=== PATIENT | male | born 1930 | race Caucasian/White ===

== ENCOUNTER 2018-07-23 11:14 | Emergency (ER) | payer MEDICARE, BC ==
[2018-07-23 11:36] VITALS: RESP 18
[2018-07-23] MEDS ORDERED: LIDOCAINE/EPINEPHR/TETRACAINE 5 ML BOTTLE TOPICAL ONE (11:45)
[2018-07-23] MEDS ORDERED: SILVER NITRATE APPLICATOR 1 EACH STICK..EA. TOPICAL STA (12:03)
--- NOTE | 2018-07-23 12:20 | ED ---
General Adult HPI - General Chief complaint: ENT Stated complaint: nose bleed Time Seen by Provider: 07/23/18 11:38 Source: patient, EMS, RN notes reviewed Mode of arrival: EMS Limitations: no limitations - History of Present Illness Initial comments: Patient 88-year-old male presented to the emergency room today by EMS, the chief complaint of epistaxis. He does admit that he was drinking a cup of coffee approximately at 10 AM he began having bloody nose coming on the right nostril. He does admit that he's had this problem multiple times in the past has seen ENT Dr. Malcolm. Patient does admit that he takes a daily aspirin but no other blood thinners. Patient does admit that he is on oxygen due to history of COPD and partial lobectomy on the left. States that he is not on humidified oxygen. Patient denies any other complaints or symptoms at this time. Patient denies any recent fever, chills, change in shortness of breath, chest pain, back pain, constipation or diarrhea, headaches or visual changes, or any other complaints. - Related Data Home Medications Medication Instructions Recorded Confirmed Aspirin [Terrell Aspirin EC] 81 mg PO DAILY 07/23/18 07/23/18 Atenolol [Tenormin] 50 mg PO DAILY 07/23/18 07/23/18 Cholecalciferol [Vitamin D3] 1,000 unit PO DAILY 07/23/18 07/23/18 Doxazosin [Cardura] 4 mg PO DAILY 07/23/18 07/23/18 Finasteride [Proscar] 5 mg PO DAILY 07/23/18 07/23/18 Garlic 1 tab PO DAILY 07/23/18 07/23/18 Multivitamins, Thera [Multivitamin 1 tab PO DAILY 07/23/18 07/23/18 (formulary)] Omeprazole [PriLOSEC] 20 mg PO DAILY 07/23/18 07/23/18 amLODIPine BESYLATE [Norvasc] 2.5 mg PO DAILY 07/23/18 07/23/18 Allergies Allergy/AdvReac Type Severity Reaction Status Date / Time No Known Allergies Allergy Unverified 07/23/18 11:44 Review of Systems ROS Statement: Those systems with pertinent positive or pertinent negative responses have been documented in the HPI. ROS Other: All systems not noted in ROS Statement are negative. Past Medical History Past Medical History: COPD, Hypertension History of Any Multi-Drug Resistant Organisms: None Reported Past Surgical History: Orthopedic Surgery Additional Past Surgical History / Comment(s): left knee, left lobectomy Smoking Status: Former smoker Past Alcohol Use History: None Reported Past Drug Use History: None Reported General Exam - General Exam Comments Initial Comments: General: The patient is awake and alert, in no distress, and does not appear acutely ill. Eye: Pupils are equal, round and reactive to light, extra-ocular movements are intact. No nystagmus. There is normal conjunctiva bilaterally. No signs of icterus. Ears, nose, mouth and throat: There are moist mucous membranes and no oral lesions. mild bleeding from right nostril. No active bleeding. No posterior pharynx. Neck: The neck is supple Cardiovascular: There is a regular rate and rhythm. No murmur, rub or gallop is appreciated. Respiratory: Lungs are clear to auscultation, respirations are non-labored, breath sounds are equal. No wheezes, stridor, rales, or rhonchi. Musculoskeletal: Normal ROM, no tenderness. Neurological: A&O x 3. CN II-XII intact, There are no obvious motor or sensory deficits. Coordination appears grossly intact. Speech is normal. Skin: Skin is warm and dry and no rashes or lesions are noted. Psychiatric: Cooperative, appropriate mood & affect, normal judgment. Limitations: no limitations Course Vital Signs 07/23/18 11:25 Temperature 97 F L Pulse Rate 66 Respiratory 18 Rate Blood Pressure 134/95 O2 Sat by Pulse 89 L Oximetry Procedures - Procedures Initial comment: Patient's right nostril did have a cottonball with lidocaine, epinephrine, tetracaine on it placed in the right nostril left there for 30 minutes. This was removed and there was a area on the medial aspect of the right nostril that had small bleeding. Silver nitrate stick was used to cauterize. Patient tolerated the procedure well. There is no active bleeding. There is a scab portion also on the left medial aspect of the nose which has no current bleeding. Medical Decision Making - Medical Decision Making Patient is doing well. Patient's currently on oxygen not humidified at home. Discussed with patient that this may help as he has had frequent nosebleeds. Patient doing well at this time no signs of distress. No rebleeding has been observed with no issues. Patient pulse ox was low at triage at 89%. However, patient is on O2 at home. He was given blow-by oxygen and pulse ox was 94% in the room during procedures. Patient will be discharged home is advised to follow-up with ENT as needed. Advised if bleeding recurs to clamp the nose for 20 minutes if bleeding uncontrolled return back here to the emergency room. Disposition Clinical Impression: Epistaxis Disposition: HOME SELF-CARE Condition: Good Instructions: Nosebleed (ED) Additional Instructions: Please discuss about humidified oxygen which may help decrease nosebleeds. If bleeding reoccurs at home please use nasal clamp for 20 minutes. Please uncontrolled return here to the emergency room. Please follow-up with ENT/ family doctor in the next 2 days of symptoms have not improved. Please return to emergency room if the symptoms increase or worsen or for any other concerns. Is patient prescribed a controlled substance at d/c from ED?: No Referrals: Carlos Singh DO [Primary Care Provider] - 1-2 days Time of Disposition: 13:45
[2018-07-23 14:16] VITALS: BP 105/70; PULSE 88; TEMP 97.4
== END 2018-07-23 14:08 | disposition home or self-care (01) ==
LOC: EC 11:14
DX: R04.0 Epistaxis (principal); I10 Essential (primary) hypertension; Z79.82 Long term (current) use of aspirin; Z79.899 Other long term (current) drug therapy; Z87.891 Personal history of nicotine dependence
CPT/HCPCS: 30901; 99284

== ENCOUNTER 2018-10-03 13:22 | Inpatient (IN) | payer MEDICARE, BC ==
--- NOTE | 2018-10-03 13:53 | ED ---
General Adult HPI - General Chief complaint: ENT Stated complaint: Nosebleed Time Seen by Provider: 10/03/18 13:32 Source: patient Mode of arrival: EMS - History of Present Illness Initial comments: Dictation was produced using [employer] dictation software. please excuse any grammatical, word or spelling errors. Chief Complaint: 88-year-old male with past medical history of COPD, hypertension, epistaxis presents with her as of right naris bleeding. History of Present Illness: At 8-year-old male. He is brought in by EMS for right naris bleeding. Patient states his symptoms started today. Denies any blood thinners. He does not report taking aspirin. Patient states that 3 months ago he had a similar episode requiring emergency department evaluation. Patient has no other complaints at this time. EMS had placed packing in the right naris and a nasal clamp with control of bleeding. The ROS documented in this emergency department record has been reviewed and confirmed by me. Those systems with pertinent positive or negative responses have been documented in the HPI. All other systems are other negative and/or noncontributory. PHYSICAL EXAM: General Impression: Alert and oriented x3, not in acute distress HEENT: Normocephalic atraumatic, extra-ocular movements intact, pupils equal and reactive to light bilaterally, mucous membranes moist, blood around the right external naris. No source of bleeding identified at the nasal septum or in the naris she'll is externally. Cardiovascular: Heart regular rate and rhythm, S1&S2 audible, no murmurs, rubs or gallops Chest: Lungs clear to auscultation bilaterally, no rhonchi, no wheeze, no rales Abdomen: Bowel sounds present, abdomen soft, non-tender, non-distended, no organomegaly Musculoskeletal: Pulses present and equal in all extremities, no peripheral edema Motor: no focal deficits noted Neurological: CN II-XII grossly intact, no focal motor or sensory deficits noted Skin: Intact with no visualized rashes Psych: Normal affect and mood ED course: 88-year-old male presents with epistaxis of the right naris. No identifiable source of bleeding on physical examination. End upon arrival shows 91% on 3 L is cannula. Patient denies any home oxygen. Merocel packing was placed in the right naris. Patient tolerated placement well. Return evaluation obtained. In lieu of is 8.4. No old hemoglobin for comparison. Platelets 194. Metabolic panel shows mild acidosis. Rest of CBC is grossly unremarkable. Patient denies any history of atrial fibrillation. Medications reviewed he is not an and any anticoagulation medications at this time. Epistaxis is controlled however given patient's EKG there is concerns for new onset atrial fibrillation. Given that patient is having significant nasal bleeding we will withhold heparin or any anticoagulant medication at this time. Patient be admitted. Cardiology and ENT are consulted. EKG interpretation: Ventricular rate 70, H or for ablation, QRS 80, QTc 444. No NM prolongation, no QTC prolongation, no ST or T-wave changes noted. - Related Data Home Medications Medication Instructions Recorded Confirmed Aspirin [Crellin Aspirin EC] 81 mg PO Q3D 07/23/18 10/03/18 Atenolol [Tenormin] 50 mg PO DAILY 07/23/18 10/03/18 Doxazosin [Cardura] 4 mg PO HS 07/23/18 10/03/18 Finasteride [Proscar] 5 mg PO HS 07/23/18 10/03/18 Multivitamins, Thera [Multivitamin 1 tab PO DAILY 07/23/18 10/03/18 (formulary)] amLODIPine BESYLATE [Norvasc] 2.5 mg PO DAILY 07/23/18 10/03/18 Allergies Allergy/AdvReac Type Severity Reaction Status Date / Time No Known Allergies Allergy Verified 10/03/18 14:18 Review of Systems ROS Statement: Those systems with pertinent positive or pertinent negative responses have been documented in the HPI. ROS Other: All systems not noted in ROS Statement are negative. Past Medical History Past Medical History: COPD, Hypertension History of Any Multi-Drug Resistant Organisms: None Reported Past Surgical History: Orthopedic Surgery Additional Past Surgical History / Comment(s): left knee, left lobectomy Past Psychological History: No Psychological Hx Reported Smoking Status: Former smoker Past Alcohol Use History: None Reported Past Drug Use History: None Reported Course Vital Signs 10/03/18 13:30 Temperature 98.0 F Pulse Rate 83 Respiratory 15 Rate Blood Pressure 111/69 O2 Sat by Pulse 91 L Oximetry Medical Decision Making - Lab Data Result diagrams: 10/03/18 14:24 10/03/18 14:24 Lab Results 10/03/18 10/03/18 10/03/18 Range/Units 14:24 14:24 14:24 WBC 6.4 (3.8-10.6) k/uL RBC 3.38 L (4.30-5.90) m/uL Hgb 8.4 L (13.0-17.5) gm/dL Hct 27.6 L (39.0-53.0) % MCV 81.7 (80.0-100.0) fL MCH 24.9 L (25.0-35.0) pg MCHC 30.5 L (31.0-37.0) g/dL RDW 16.0 H (11.5-15.5) % Plt Count 194 (150-450) k/uL Neutrophils % 78 % Lymphocytes % 12 % Monocytes % 7 % Eosinophils % 2 % Basophils % 0 % Neutrophils # 5.0 (1.3-7.7) k/uL Lymphocytes # 0.8 L (1.0-4.8) k/uL Monocytes # 0.5 (0-1.0) k/uL Eosinophils # 0.1 (0-0.7) k/uL Basophils # 0.0 (0-0.2) k/uL Hypochromasia Marked PT 11.6 (9.0-12.0) sec INR 1.1 (<1.2) Sodium 138 (137-145) mmol/L Potassium 4.8 (3.5-5.1) mmol/L Chloride 110 H (98-107) mmol/L Carbon Dioxide 20 L (22-30) mmol/L Anion Gap 8 mmol/L BUN 36 H (9-20) mg/dL Creatinine 1.36 H (0.66-1.25) mg/dL Est GFR (CKD-EPI)AfAm 53 (>60 ml/min/1.73 sqM) Est GFR (CKD-EPI)NonAf 46 (>60 ml/min/1.73 sqM) Glucose 134 H (74-99) mg/dL Calcium 9.4 (8.4-10.2) mg/dL Disposition Clinical Impression: Epistaxis, New onset a-fib Disposition: ADMITTED IP TO THIS [facility] Condition: Fair Referrals: Carlos Singh DO [Primary Care Provider] - 1-2 days Decision Time: 14:50
[2018-10-03 14:35] LABS: Basophils % (A) 0 %; Eosinophils # (A) 0.1 k/uL (0-0.7); Eosinophils % (A) 2 %; HCT 27.6 % (39.0-53.0); HGB 8.4 gm/dL (13.0-17.5); Hypochromasia Marked; Lymphocytes # (A) 0.8 k/uL (1.0-4.8); Lymphocytes % (A) 12 %; MCH 24.9 pg (25.0-35.0); MCHC 30.5 g/dL (31.0-37.0); MCV 81.7 fL (80.0-100.0); Mean Platelet Volume 7.8; Monocytes # (A) 0.5 k/uL (0-1.0); Monocytes % (A) 7 %; Neutrophils % (A) 78 %; Platelet Count 194 k/uL (150-450); RBC 3.38 m/uL (4.30-5.90); WBC 6.4 k/uL (3.8-10.6)
[2018-10-03 14:44] LABS: Calcium 9.4 mg/dL (8.4-10.2); Potassium 4.8 mmol/L (3.5-5.1)
[2018-10-03 14:47] LABS: INR 1.1 (<1.2); Prothrombin Time 11.6 sec (9.0-12.0)
[2018-10-03] MEDS ORDERED: NALOXONE 0.4 MG/ML 1 ML VIAL IV PRN (14:51)
[2018-10-03] MEDS: SODIUM CHLORIDE 0.9% 1,000 ML IV SCH (20:30)
[2018-10-03] MEDS ORDERED: FINASTERIDE 5 MG TAB PO SCH (21:00)
[2018-10-03] MEDS ORDERED: DOXAZOSIN 4 MG TAB PO SCH (21:00)
--- NOTE | 2018-10-03 21:59 | XR ---
EXAMINATION TYPE: XR chest 2V DATE OF EXAM: 10/03/2018 COMPARISON: NONE HISTORY: Short of breath TECHNIQUE: Frontal and lateral views of the chest are obtained. FINDINGS: There is some linear airspace infiltrate and atelectasis in the right lower lobe posterior ly. There is no heart failure. There is coarsening of the lung markings. There is no pleural effusion . Bony thorax appears intact. IMPRESSION: Interstitial pulmonary fibrotic changes. Infiltrate and atelectasis right lower lobe. No heart failure seen.
[2018-10-04] MEDS ORDERED: ACETAMINOPHEN TAB 325 MG TAB PO PRN (05:48)
[2018-10-04] MEDS ORDERED: ALBUTEROL NEBULIZED 2.5 MG/3 ML INHALATION SCH (08:00)
[2018-10-04 08:16] LABS: Basophils % (A) 0 %; Eosinophils # (A) 0.1 k/uL (0-0.7); Eosinophils % (A) 3 %; HCT 25.6 % (39.0-53.0); HGB 7.5 gm/dL (13.0-17.5); Hypochromasia Marked; Lymphocytes # (A) 0.7 k/uL (1.0-4.8); Lymphocytes % (A) 15 %; MCH 24.4 pg (25.0-35.0); MCHC 29.3 g/dL (31.0-37.0); MCV 83.3 fL (80.0-100.0); Mean Platelet Volume 8.4; Monocytes # (A) 0.4 k/uL (0-1.0); Monocytes % (A) 9 %; Neutrophils # (A) 3.1 k/uL (1.3-7.7); Neutrophils % (A) 71 %; Platelet Count 188 k/uL (150-450); RBC 3.07 m/uL (4.30-5.90); RDW 15.3 % (11.5-15.5); WBC 4.4 k/uL (3.8-10.6)
[2018-10-04] MEDS: IPRATROPIUM-ALBUTEROL 3 ML NEB INHALATION SCH ×3 (08:31→16:52)
[2018-10-04] MEDS ORDERED: ATENOLOL 50 MG TAB PO SCH (09:00)
[2018-10-04] MEDS ORDERED: amLODIPine 2.5 MG TAB PO SCH (09:00)
[2018-10-04] MEDS ORDERED: PANTOPRAZOLE 40 MG/10 ML VIAL IV SCH (09:00)
[2018-10-04] MEDS ORDERED: AMOXIC-POT CLAV 875-125MG 1 EACH TAB PO SCH (09:00)
[2018-10-04 11:53] VITALS: BP 120/68; TEMP 97.7
[2018-10-04] MEDS ORDERED: MULTIVITAMINS, THERA 1 EACH TAB PO SCH (12:00)
[2018-10-04 12:03] VITALS: RESP 16
[2018-10-04 12:10] VITALS: PULSE 77
--- NOTE | 2018-10-04 12:55 | CONS ---
CONSULTATION This is an 88-year-old gentleman with a known diagnosis of chronic persistent atrial fibrillation who sees Dr. Michael in the outpatient setting. His primary care physician is Dr. Singh. He came into the hospital mainly with an episode of what seems to be ongoing epistaxis which seems to be persistent. He was in the emergency room with significant bleeding and he was on Xarelto in the past. This has been discontinued. He had an epistaxis from the right naris and this area has been packed and ENT consult has been placed. Because of atrial fibrillation, I was asked to see him in this regard. It was thought that this was a new atrial fibrillation, but apparently this is not new. Patient has had chronic persistent atrial fibrillation. He was on anticoagulants in the past, but he has stopped them because of epistaxis. His home medications include aspirin 81 mg daily, but he is not on any other anticoagulants. At the time of my evaluation, the epistaxis has stopped. Patient is a little unhappy and he would like to see his ENT doctor as soon as possible. I explained to him that the plan is for now pack his nose and he can see his ENT surgeon as an outpatient, but we will certainly make a phone call in this regard. His atrial fib rate is very well controlled. He is hemodynamically stable, tolerating this arrhythmia well. He has no chest pain, shortness of breath, palpitations, syncope or near syncope. PAST MEDICAL HISTORY: Remarkable for chronic atrial fibrillation, hypertension, recurrent epistaxis, benign prostatic hypertrophy. CURRENT MEDICATIONS: Home medications include aspirin 81 mg daily, Tenormin 50 mg daily, Cardura 4 mg daily, Proscar 5 mg daily, amlodipine 2.5 mg daily. ALLERGIES: None. REVIEW OF SYSTEMS: Unremarkable other than above-mentioned facts. The patient has had some left knee surgery and also lung surgery, details unclear. PHYSICAL EXAMINATION: Blood pressure is 120/70, pulse rate is in the 70s. HEENT unremarkable. Fundus was not examined by me. Neck is supple. There is no JVD. I do not hear a carotid bruit. Heart exam reveals S1, S2 with a regular rhythm, short systolic murmur. Lungs are clear. Abdomen is soft. Lower extremities reveal palpable pulses. No edema. Central nervous system is normal. EKG revealed atrial fibrillation, controlled ventricular rate, nonspecific ST and T- wave changes. Chest x-ray revealed interstitial fibrotic changes with some atelectasis of the right lobe. IMPRESSION: 1. Probable chronic atrial fibrillation with rate control, not on anticoagulants because of recurrent epistaxis. 2. Active epistaxis yesterday with a low hemoglobin of 7.5. 3. No evidence of any active congestive heart failure. RECOMMENDATIONS: I am recommending that no anticoagulation be given. We will obtain echocardiogram to assess LV function. I am also suggesting that a phone call for Dr. Saunders to clarify whether he wants to see him while he is here or following him up as an outpatient. His hemoglobin also needs to be followed closely at least for the next 24 hours and cardiac- carney no active intervention is necessary. Thank you very much for the consult. MMJOCELINEL / MIKHAILN: [id number] /
--- NOTE | 2018-10-04 13:11 | ECHOF ---
Referral Reason:AFIB MEASUREMENTS -------- HEIGHT: 182.9 cm WEIGHT: 71.2 kg BP: 105/60 RVIDd: 3.7 cm (< 3.3) IVSd: 1.1 cm (0.6 - 1.1) LVIDd: 3.6 cm (3.9 - 5.3) LVPWd: 1.1 cm (0.6 - 1.1) IVSs: 1.5 cm LVIDs: 2.5 cm LVPWs: 1.4 cm LAESV Index (A-L): 25.08 ml/m Ao Diam: 4.4 cm (2.0 - 3.7) AV Cusp: 1.9 cm (1.5 - 2.6) LA Diam: 3.8 cm (2.7 - 3.8) EPSS: 1.3 cm RAP: 10.00 mmHg RVSP: 69.36 mmHg MV EF SLOPE: 144.39 mm/s (70 - 150) MV EXCURSION: 2.17 cm (> 18.000) FINDINGS -------- Atrial fibrillation. This was a technically adequate study. The left ventricular size is normal. There is borderline concentric left ventricular hypertrophy. Overall left ventricular systolic function is low-normal with, an EF between 50 - 55 %. The right ventricle is mildly enlarged. Normal LA size by volume 22+/-6 ml/m2. RA appears enlarged. Aortic valve is trileaflet and is mildly thickened. There is mild aortic regurgitation. There is no evidence of aortic stenosis. The mitral valve leaflets are mildly thickened. There is trace to mild mitral regurgitation. Moderate tricuspid regurgitation present. There is moderate to severe pulmonary hypertension. The right ventricular systolic pressure, as measured by Doppler, is 69.36mmHg. Trace/mild (physiologic) pulmonic regurgitation. The aortic root is mildy dilated up to 4.2 cm. The IVC is dilated with normal collapse. CONCLUSIONS -------- 1. Atrial fibrillation. 2. This was a technically adequate study. 3. The left ventricular size is normal. 4. There is borderline concentric left ventricular hypertrophy. 5. Overall left ventricular systolic function is low-normal with, an EF between 50 - 55 %. 6. The right ventricle is mildly enlarged. 7. Normal LA size by volume 22+/-6 ml/m2. 8. RA appears enlarged. 9. Aortic valve is trileaflet and is mildly thickened. 10. There is mild aortic regurgitation. 11. The mitral valve leaflets are mildly thickened. 12. There is trace to mild mitral regurgitation. 13. Moderate tricuspid regurgitation present. 14. There is moderate to severe pulmonary hypertension. 15. The right ventricular systolic pressure, as measured by Doppler, is 69.36mmHg. 16. Trace/mild (physiologic) pulmonic regurgitation. 17. The IVC is dilated with normal collapse. POKER ROOM MANAGER: Kyree Joe RDCS
[2018-10-04] MEDS: SODIUM CHLORIDE 0.9% 1,000 ML IV SCH (15:33)
[2018-10-04 16:11] LABS: Anisocytosis Slight; Basophils % (A) 1 %; Eosinophils # (A) 0.1 k/uL (0-0.7); Eosinophils % (A) 2 %; HCT 26.3 % (39.0-53.0); HGB 7.9 gm/dL (13.0-17.5); Hypochromasia Marked; Lymphocytes # (A) 0.6 k/uL (1.0-4.8); Lymphocytes % (A) 10 %; MCH 24.4 pg (25.0-35.0); MCV 81.3 fL (80.0-100.0); Mean Platelet Volume 8.3; Monocytes # (A) 0.4 k/uL (0-1.0); Monocytes % (A) 8 %; Neutrophils # (A) 4.2 k/uL (1.3-7.7); Neutrophils % (A) 78 %; Platelet Count 193 k/uL (150-450); RBC 3.24 m/uL (4.30-5.90); WBC 5.4 k/uL (3.8-10.6)
--- NOTE | 2018-10-04 21:30 | P.HPIM ---
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 Presents because of epistaxis which was started 10:30 yesterday and it did not stop till he came to emergency room where he has nasal packing his right nostril. now bleeding stopped. Patient hemoglobin was 8.4, down to 7.5. Vitas is stable. Patient is on home oxygen 2- 3 L via nasal cannula. Currently on 4 L via facemask. Patient denies chest pain or dyspnea. No change in urine or bowel habits. No nausea vomiting. No abdominal pain. No fever. Patient has an appointment with Dr. Lainez the ENT specialist wanted to see him in the office tomorrow. His appointment is tomorrow at 8:30 am. I spoke to his daughter miss Rodriguez upon patient request and discussed the case with her and she agrees to take him to the Dr. Lainez appointment. Cardiology evaluated the patient as well.repeat hemoglobin this afternoon shows improvement in his level from 7.5 up to 7.9his creatinine is 1.3. Sodium 138, potassium 4.8.vitals stable.patient will be discharged on antibiotic.also patient will be discharged on facemask as he cannot use the nasal cannula because of his nostril pack Problems and management plan were discussed with the patient and his daughter and they verbalized understanding and acceptance. Patient was found stable and can be discharged home in guarded prognosis however he needs follow-up as an outpatient. Patient was instructed to follow up with his tomorrow appointment at 8:30 in the morning and he agrees. Also patient was instructed to follow up with his PCP within one week and his strategic communications manager within 10 days. Also he agrees i spoke with the daughter Ms. Puckett, she told me pt refused to take xarelto and that is why he is on aspirin, i instructed her to keep holding asa till he follow up with he ENT and strategic communications manager and discussed with them when to start it again, also she is going to monitor him , if he bleed again or get worse to bring him to the hospital and she agrees. pt has oxygen at home and I instructed her to use a face mask and follow up with his doctor. she agrees also . pt also is been discharge so he will not miss his appointment tomorrow Gen: patient is a AAOx3, no distress CVS: S1-S2, RRR, no murmur Lungs: B/L CTA, no wheezing Abdomen: soft, no distention, no tenderness, positive bowel sounds Extremity: no leg edema or induration Time spent more than 35 minutes Review of Systems CONSTITUTIONAL: No fever, no malaise, no fatigue. HEENT: No recent visual problems or hearing problems. Denied any sore throat. CARDIOVASCULAR: No orthopnea, PND, no palpitations, no syncope. PULMONARY: No shortness of breath, no cough, no hemoptysis. GASTROINTESTINAL: No diarrhea, no nausea, no vomiting, no abdominal pain. Normoactive bowel sounds. NEUROLOGICAL: No headaches, no weakness, no numbness. HEMATOLOGICAL: Denies any bleeding or petechiae. GENITOURINARY: Denies any burning micturition, frequency, or urgency. MUSCULOSKELETAL/RHEUMATOLOGICAL: Denies any joint pain, swelling, or any muscle pain. ENDOCRINE: Denies any polyuria or polydipsia. 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 Past Anesthesia/Blood Transfusion Reactions: No Reported Reaction Smoking Status: Former smoker - Past Family History Father Family Medical History: Cancer Additional Family Medical History / Comment(s): Father of larygeal cancer at the age of 72 yrs. Mother Family Medical History: No Reported History Additional Family Medical History / Comment(s): Mother was healthy and live to be 88yrs old. Medications and Allergies Home Medications Medication Instructions Recorded Confirmed Type Atenolol [Tenormin] 50 mg PO DAILY 07/23/18 10/03/18 History Doxazosin [Cardura] 4 mg PO HS 07/23/18 10/03/18 History Finasteride [Proscar] 5 mg PO HS 07/23/18 10/03/18 History Multivitamins, Thera [Multivitamin 1 tab PO DAILY 07/23/18 10/03/18 History (formulary)] amLODIPine BESYLATE [Norvasc] 2.5 mg PO DAILY 07/23/18 10/03/18 History Amoxic-Pot Clav 875-125Mg 1 each PO DAILY #8 tab 10/04/18 Rx [Augmentin 875-125] Pantoprazole [Protonix] 40 mg PO DAILY #30 tablet. 10/04/18 Rx Allergies Allergy/AdvReac Type Severity Reaction Status Date / Time No Known Allergies Allergy Verified 10/03/18 14:18 Physical Exam Vitals: Vital Signs Temp Pulse Resp BP Pulse Ox 10/03/18 15:00 98.0 F 91 18 121/62 96 10/03/18 13:30 98.0 F 83 15 111/69 91 L Intake and Output 10/03/18 10/03/18 10/03/18 06:59 14:59 22:59 Other: Weight 78.925 kg GENERAL: The patient is alert and oriented x3, not in any acute distress. Well developed, well nourished. HEENT: Pupils are round and equally reacting to light. EOMI. No scleral icterus. No conjunctival pallor. Normocephalic, atraumatic. No pharyngeal erythema. No thyromegaly. CARDIOVASCULAR: S1 and S2 present. No murmurs, rubs, or gallops. PULMONARY: Chest is clear to auscultation, no wheezing or crackles. ABDOMEN: Soft, nontender, nondistended, normoactive bowel sounds. No palpable organomegaly. MUSCULOSKELETAL: No joint swelling or deformity. EXTREMITIES: No cyanosis, clubbing, or pedal edema. NEUROLOGICAL: Gross neurological examination did not reveal any focal deficits. SKIN: No rashes. Results CBC & Chem 7: 10/04/18 15:41 10/03/18 14:24 Labs: Abnormal Lab Results - Last 24 Hours (Table) 10/03/18 10/03/18 Range/Units 14:24 14:24 RBC 3.38 L (4.30-5.90) m/uL Hgb 8.4 L (13.0-17.5) gm/dL Hct 27.6 L (39.0-53.0) % MCH 24.9 L (25.0-35.0) pg MCHC 30.5 L (31.0-37.0) g/dL RDW 16.0 H (11.5-15.5) % Lymphocytes # 0.8 L (1.0-4.8) k/uL Chloride 110 H (98-107) mmol/L Carbon Dioxide 20 L (22-30) mmol/L BUN 36 H (9-20) mg/dL Creatinine 1.36 H (0.66-1.25) mg/dL Glucose 134 H (74-99) mg/dL Thrombosis Risk Factor Assmnt - Choose All That Apply Any of the Below Risk Factors Present?: Yes Each Factor Represents 1 point: Abnormal pulmonary function (COPD) Other Risk Factors: Yes Each Risk Factor Represents 2 Points: Malignancy Each Risk Factor Represents 3 Points: Age 75 years or older Other congenital or acquired thrombophilia - If yes, enter type in comment: No Thrombosis Risk Factor Assessment Total Risk Factor Score: 6 Thrombosis Risk Factor Assessment Level: High Risk Assessment and Plan Plan: Labs and medication were reviewed.. Continue same treatment. Continue with symptomatic treatment. Resume home medication. Monitor lytes and vitals. DVT and GI prophylaxis. Further recommendations of the clinical course of the patient DVT prophylaxis: Subcutaneous heparin GI Prophylaxis: Pepcid PT/OT: Pending Prognosis is guarded
[2018-10-05] MEDS ORDERED: PANTOPRAZOLE 40 MG TABLET PO SCH (09:00)
== END 2018-10-04 19:31 | disposition home or self-care (01) | DRG 151 ==
LOC: EC 13:22 → 3SCARD 14:51 → 3NMEDONC 10-04 15:50
PROVIDERS: ADMIT Hospitalist; ATTEND Hospitalist
PROC: 2Y41X5Z Packing of Nasal Region using Packing Material (ICD-10-PCS; principal; 2018-10-03)
DX: R04.0 Epistaxis (principal); I48.1 Persistent atrial fibrillation; E87.2 Acidosis; J44.9 Chronic obstructive pulmonary disease, unspecified; D64.9 Anemia, unspecified; I10 Essential (primary) hypertension; M19.041 Primary osteoarthritis, right hand; M19.042 Primary osteoarthritis, left hand; N40.0 Benign prostatic hyperplasia without lower urinary tract symptoms; Z99.81 Dependence on supplemental oxygen; Z87.891 Personal history of nicotine dependence; Z79.82 Long term (current) use of aspirin; Z79.899 Other long term (current) drug therapy; Z85.118 Personal history of other malignant neoplasm of bronchus and lung; Z90.2 Acquired absence of lung [part of]; Z92.3 Personal history of irradiation; Z87.01 Personal history of pneumonia (recurrent); Z86.73 Personal history of transient ischemic attack (TIA), and cerebral infarction without residual deficits; Z98.42 Cataract extraction status, left eye; Z98.41 Cataract extraction status, right eye; Z96.1 Presence of intraocular lens; Z80.1 Family history of malignant neoplasm of trachea, bronchus and lung
CPT/HCPCS: 30901; 36415; 71046; 80048; 83880; 85025; 85610; 93005; 93306; 94640; 94760; 99284